=== PATIENT | male | born 1945 | race Caucasian/White ===

== ENCOUNTER 2022-11-17 08:04 | Emergency (ER) | payer OTHER, MEDICARE ==
[2022-11-17] MEDS ORDERED: Diphtheria,Pertussis(Acell),Tetanus Vaccine 0.5 ML Syringe IM ONE (08:38)
[2022-11-17] MEDS ORDERED: Lidocaine 1% 5 ML VIAL INJECT ONE (09:33)
[2022-11-17] MEDS ORDERED: Lidocaine 1% 5 ML VIAL ONE ×2 (09:59→10:24)
[2022-11-17] MEDS ORDERED: Bacitracin Oint 1 GM U/D Packet TOP ONE (11:31)
[2022-11-17 22:16] VITALS: BP 144/81; PULSE 109
== END 2022-11-17 12:20 | disposition home or self-care (01) ==
LOC: LL.ED 08:04
DX: S61.012A Laceration without foreign body of left thumb without damage to nail, initial encounter (principal); S61.211A Laceration without foreign body of left index finger without damage to nail, initial encounter; S61.213A Laceration without foreign body of left middle finger without damage to nail, initial encounter; S61.215A Laceration without foreign body of left ring finger without damage to nail, initial encounter; Z23 Encounter for immunization; Z87.891 Personal history of nicotine dependence; Z91.012 Allergy to eggs; Z88.8 Allergy status to other drugs, medicaments and biological substances; Z91.018 Allergy to other foods
CPT/HCPCS: 12004; 73130-LT; 90471; 90715; 99283; J3490